=== PATIENT | male | born 1970 | race Caucasian/White ===

== ENCOUNTER → 2021-07-10 | Outpatient (CLI) | payer OTHER ==
--- NOTE | 2021-07-10 18:55 | RAD ---
Left foot 3 views: Reason for examination: Pain for one year. No acute fracture or dislocation is seen. The bone density is normal. No abnormal periosteal reaction is seen. Joint spaces are maintained. Impression: No acute abnormality evident at the left foot. Electronically signed by: Mimi Crouch MD (07/10/2021 6:52 PM) [id number]
== END ==
LOC: RAD 09:10
PROVIDERS: ATTEND Podiatrist
DX: M79.672 Pain in left foot (principal)
CPT/HCPCS: 73630